=== PATIENT | female | born 1980 | race Caucasian/White ===

== ENCOUNTER 2020-04-25 14:33 | Emergency (ER) | payer BC ==
[2020-04-25] MEDS ORDERED: Lidocaine 1% with EPINEPHrine 1:100,000 50 ML MDV INFILT ONE (15:23)
[2020-04-25] MEDS ORDERED: Diphtheria,Pertussis(Acell),Tetanus Vaccine 0.5 ML SDV IM ONE (15:28)
[2020-04-25] MEDS ORDERED: Bacitracin Oint 1 GM U/D Packet TOP ONE (15:28)
--- NOTE | 2020-04-25 16:22 | EDM.PDOC ---
ED HPI GENERAL MEDICAL PROBLEM - General Chief Complaint: Laceration Stated Complaint: R ISLAS INJURY Time Seen by Provider: 04/25/20 15:50 Source of Information: Reports: Patient, Family History Limitations: Reports: No Limitations - History of Present Illness INITIAL COMMENTS - FREE TEXT/NARRATIVE: 39-year-old female with a 7 cm V-shaped flap laceration on the anterior aspect of the right islas, and a partial evulsion of the large toenail. She also has a puncture wound on the left anterior islas. She is able to ambulate without difficulty and is otherwise healthy. Onset: Sudden Duration: Hour(s): (Injury occurred about an hour and half ago) Location: Reports: Lower Extremity, Left, Lower Extremity, Right Associated Symptoms: Reports: No Other Symptoms Left Leg Pain Score (Numeric/FACES): 6 - Related Data Allergies Allergy/AdvReac Type Severity Reaction Status Date / Time No Known Allergies Allergy Verified 04/25/20 14:59 Home Meds: Home Meds NK [No Known Home Meds] 04/25/20 [History] Past Medical History [employer] History: Reports: Social & Family History - Tobacco Use Smoking Status *Q: Current Every Day Smoker Years of Tobacco use: 20 Packs/Tins Daily: 1 - Caffeine Use Caffeine Use: Reports: Coffee - Recreational Drug Use Recreational Drug Use: No ED ROS GENERAL - Review of Systems Review Of Systems: See Below Constitutional: Denies: Fever, Chills HEENT: Reports: No Symptoms Respiratory: Reports: No Symptoms Cardiovascular: Reports: Dyspnea on Exertion GI/Abdominal: Reports: No Symptoms. Denies: Nausea, Vomiting : Reports: No Symptoms Neurological: Denies: Paresthesia (No numbness of the distal right leg) Psychiatric: Reports: No Symptoms ED EXAM, SKIN/RASH Exam: See Below Exam Limited By: No Limitations General Appearance: Alert, No Apparent Distress Respiratory/Chest: No Respiratory Distress Extremities: Other (Exam is otherwise limited the lower extremities. Patient has 1 small less than 1 cm puncture wound of the anterior aspect of the lower left leg. On the right leg she has a 7 cm angled laceration on the mid islas, it is fairly deep and retracted and is exposing the fascia of the underlying muscle. She also has a partially avulsion of the large toenail on the right foot.) Neurological: Alert, Oriented Psychiatric: Normal Affect, Normal Mood Course - Vital Signs Last Recorded V/S: Last Vital Signs Temp 97.0 F 04/25/20 15:02 Pulse 101 H 04/25/20 15:02 Resp 16 04/25/20 15:02 BP 153/88 H 04/25/20 15:02 Pulse Ox 99 04/25/20 15:02 - Orders/Labs/Meds Meds: Medications Discontinued Medications Generic Name Dose Route Start Last Admin Trade Name Roman PRN Reason Stop Dose Admin Bacitracin 1 dose 04/25/20 15:28 04/25/20 16:30 Bacitracin Oint 1 Gm TOP 04/25/20 15:29 1 dose ONETIME ONE Administration Diphtheria/Tetanus/Acell Pertussis 0.5 ml 04/25/20 15:28 04/25/20 16:26 Adacel IM 04/25/20 15:29 0.5 ml .ONCE ONE Administration Lidocaine/Epinephrine 30 ml 04/25/20 15:23 04/25/20 16:29 Xylocaine 1% With Epinephrine 1:100,000 INFILT 04/25/20 15:24 30 ml ONETIME ONE Administration - Re-Assessments/Exams Free Text/Narrative Re-Assessment/Exam: 1% lidocaine with epinephrine was used to anesthetize the wound and the toe. The wound was then cleansed thoroughly with saline, five 5-0 Vicryl sutures were used to close the subcutaneous tissue and nine 4-0 Ethilon sutures were used to close the outside of the wound. The large toenail was removed and some granulation tissue along the paronychia was removed as well. The underlying nail bed was intact. The nail itself was split in two and unable to be replaced. Patient was given a Tdap booster, cephalexin 500 mg 3 times a day for 7 days, and a tube gauze was applied to the toe and dressings to the wounds. 04/25/20 16:23 Keep wound covered and clean while healing, and consider soaking the large toe in warm water and Dreft detergent once daily for the next several days. Sutures can be removed in 9 days, recheck sooner if concerns of infection or not healing satisfactorily. Departure - Departure Time of Disposition: 16:58 Disposition: Home, Self-Care 01 Clinical Impression: Avulsion of toenail of right foot Laceration of right lower leg Qualifiers: Encounter type: initial encounter Qualified Code(s): S81.811A - Laceration without foreign body, right lower leg, initial encounter - Discharge Information Instructions: Laceration Care, Adult, [id number] Referrals: PCP,None [Primary Care Provider] - Forms: ED Department Discharge Care Plan Goals: Keep wound covered and clean while healing, and sutures can be removed in 9 days. Steri-Strips across the laceration will be helpful after the sutures are removed. Consider soaking the toe once daily in warm soapy water or Dreft detergent for the first for 5 days. Increase activity as tolerated. Elevating the leg will be helpful initially, and a regular dose of ibuprofen will help with pain and you can add the stronger pain medication when trying to rest if needed. Recheck sooner if concerns of infection or not healing satisfactorily. Sepsis Event Note (ED) - Evaluation Sepsis Screening Result: No Definite Risk
== END 2020-04-25 16:58 | disposition home or self-care (01) ==
LOC: JP.ED 14:33
DX: S81.811A Laceration without foreign body, right lower leg, initial encounter (principal); S91.211A Laceration without foreign body of right great toe with damage to nail, initial encounter; F17.210 Nicotine dependence, cigarettes, uncomplicated; Z23 Encounter for immunization; X58.XXXA Exposure to other specified factors, initial encounter
CPT/HCPCS: 12032; 90471; 90715; 99282-25